=== PATIENT | male | born 1960 | race Caucasian/White ===

== ENCOUNTER 2020-06-15 20:56 | Emergency (ER) | payer MEDICARE, OTHER ==
[~2020-06-15] VITALS: Ht 190.5 cm; Wt 136.4 kg
[2020-06-15 21:04] VITALS: BP 104/58
[2020-06-15] MEDS ORDERED: LIDOcaine 1% W/epiNEPHrine 1:200,000 10ml vial IJ ONE (23:15)
[2020-06-15] MEDS ORDERED: CEPH500C5 PO (23:56)
== END 2020-06-16 00:25 | disposition home or self-care (01) ==
LOC: ER 20:57
DX: T87.81 Dehiscence of amputation stump (principal); E11.9 Type 2 diabetes mellitus without complications; Z79.899 Other long term (current) drug therapy
CPT/HCPCS: 12002; 12020; 99283; 99284